=== PATIENT | male | born 1975 | race Caucasian/White ===

== ENCOUNTER 2022-11-28 05:34 | Emergency (ER) | payer MEDICAID, SELFPAY ==
[2022-11-28 05:36] VITALS: BP 164/74; PULSE 45; RESP 16; TEMP 36.4; O2SAT 96; BMI 25.8
[2022-11-28] MEDS: Fluorescein Sodium STRIP 1 STRIP EYE-BOTH (08:34)
[2022-11-28] MEDS: Tetracaine HCl/PF 0.5% Oph Sol 4 ML DROPS 1 DROP EYE-BOTH (08:34)
--- NOTE | 2022-11-28 08:47 | ED.EYEPROB ---
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) Severity: moderate If Pain, Quality: burning Associated symptoms: none Treatments Prior to Arrival: none Related Data Previous Rx's Medication Instructions Recorded erythromycin 5 mg/gram (0.5 %) eye 0.5 inch ophthalmic (eye) BID #3.5 11/28/22 ointment grams morphine 15 mg immediate release 15 mg PO TID PRN pain #10 tabs 11/28/22 tablet Allergies Allergy/AdvReac Type Severity Reaction Status Date / Time No Known Allergies Allergy Unverified 03/11/20 16:48 Review of Systems Review of Systems: Constitutional : No Fever, No Chills, No Fatigue ENT/Mouth : No sore throat, No Rhinorrhea Eyes: pos Eye Pain, No Swelling, pos Redness Cardiovascular : No Chest Pain, No SOB, No Dyspnea on Exertion Respiratory : No Cough, No Sputum Skin : No Skin Lesions, No rash Neuro : No Weakness, No Numbness, No Dizziness, no Headache Psych : No Anxiety/Panic, No Depression All other systems reviewed and are negative [facility] Past Medical History Attestation statement: The following information was validated with the patient. Medical History (Updated 11/28/22 @ 08:54 by Constance Villareal DO) No pertinent past medical history Social History Social History (Updated 11/28/22 @ 08:54 by Constance Villareal DO) Patient Tobacco Use Status: Never used Tobacco Physical Exam Vital Signs: Vital Signs: Last Vital Signs Temp 97.5 F 11/28/22 05:36 Pulse 45 L 11/28/22 05:36 Resp 16 11/28/22 05:36 BP 164/74 H 11/28/22 05:36 Pulse Ox 96 11/28/22 05:36 O2 Del Method Room Air 11/28/22 05:36 BMI result Body Mass Index 25.8 Appearance: Alert. Oriented X3. No acute distress. Eyes: Pupils equal, round and reactive to light. normal vision, slight erythema to both cornea, EOMi, no drainage, with staining no uptake noted. ENT: Pharynx normal. Neck: Normal inspection. Neck supple. CVS: Normal heart rate and rhythm. Pulses normal. Respiratory: No respiratory distress. Abdomen: atraumatic. Skin: Skin warm and dry. Normal skin color. Extremities: No lower extremity edema. Neuro: Oriented X 3. No motor deficit. No sensory deficit. Medications Administered Discontinued Medications Generic Name Dose Route Start Last Admin Trade Name Freq PRN Reason Stop Dose Admin Fluorescein Sodium 1 strip 11/28/22 08:28 11/28/22 08:34 Fluorescein Sodium Strip EYE-BOTH 11/28/22 08:29 1 strip ONCE ONE Administration Tetracaine HCl 1 drop 11/28/22 08:28 11/28/22 08:34 Tetracaine Hcl/Pf 0.5% Oph Nancy 4 Ml Drops EYE-BOTH 11/28/22 08:29 1 drop ONCE ONE Administration Medical Decision Making Medical Decision Making [facility] Narrative: 47 yo male with welders arc burn of eyes from new job - he has no abrasions seen, normal vision, EOMi - at this time will treat supportive, does not wear contact lens, PO pain medications and eye ointment. 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 Prescriptions: New erythromycin 5 mg/gram (0.5 %) ointment 0.5 inch ophthalmic (eye) BID Qty: 3.5 0RF Rx Instructions: for 5 days morphine 15 mg tablet 15 mg PO TID PRN (Reason: pain) Qty: 10 0RF Rx Instructions: partial fill okay; Partial Fill upon patient request. Stand Alone Forms: Work/School Release
[2022-11-28 09:10] VITALS: BP 151/75; PULSE 46; RESP 18; TEMP 36.6; O2SAT 97
--- NOTE | 2022-11-28 09:12 | PC.NURSE ---
Patient presenting after getting a corneal flash burn at work. Patient is able to see but is sensitive to lights at this time. Patient otherwise well appearing at this time.
== END 2022-11-28 09:15 | disposition home or self-care (01) ==
PROVIDERS: Emergency Provider Emergency Medicine
DX: H16.133 Photokeratitis, bilateral (principal)
CPT/HCPCS: 99283